=== PATIENT | male | born 1945 | race African-American/Black ===

== ENCOUNTER 2017-12-25 00:20 | Inpatient (IN) | payer MEDICARE, OTHER ==
[~2017-12-25] VITALS: Ht 172.7 cm; Wt 54.5 kg
[2017-12-25] VITALS (8 sets, daily range): BP systolic 100–145; BP diastolic 58–84; PULSE 80–96; RESP 16–18; TEMP 98–99.5; O2SAT 92–100
[~2017-12-25 00:20] MED LIST: Z.0.NO CURRENT MEDS
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
[2017-12-25] MEDS ORDERED: SODIUM CHLORIDE 0.9% FLUSH 10 ML FLUSH IVF PRN (00:45)
[2017-12-25] MEDS ORDERED: MORPHINE SULFATE 4 MG/ML INJ IV PUSH ONE ×2 (00:45→02:30)
[2017-12-25] MEDS ORDERED: ONDANSETRON HCL 4 MG/2 ML VIAL IM ONE (00:45)
[2017-12-25 01:01] LABS: AUTOMATED NEUTROPHIL # 1.9 TH/MM3 (1.8-7.7); BASOPHIL % 0.8 % (0.0-2.0); EOSINOPHIL # 0.1 TH/MM3 (0-0.4); EOSINOPHIL % 2.7 % (0.0-4.0); HEMATOCRIT 39.8 % (39.0-51.0); HEMOGLOBIN 13.8 GM/DL (13.0-17.0); LYMPH % 33.6 % (9.0-44.0); LYMPHOCYTE # 1.2 TH/MM3 (1.0-4.8); MEAN CORPUSCULAR HEMOGLOBIN 33.3 PG (27.0-34.0); MEAN CORPUSCULAR HGB CONC 34.7 % (32.0-36.0); MONO % 6.7 % (0.0-8.0); MONOCYTE # 0.2 TH/MM3 (0-0.9); NEUT % 56.2 % (16.0-70.0); PLATELET COUNT 252 TH/MM3 (150-450); RED BLOOD COUNT 4.15 MIL/MM3 (4.50-5.90); RED CELL DISTRIBUTION WIDTH 14.7 % (11.6-17.2); WHITE BLOOD COUNT 3.4 TH/MM3 (4.0-11.0)
[2017-12-25 01:20] LABS: PROTHROMBIN TIME - PATIENT 10.3 SEC (9.8-11.6)
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
[2017-12-25 01:25] LABS: ALKALINE PHOSPHATASE 73 U/L (45-117); TOTAL BILIRUBIN ADULT 1.1 MG/DL (0.2-1.0); TOTAL PROTEIN 7.5 GM/DL (6.4-8.2)
[2017-12-25 01:30] LABS: ALBUMIN 3.8 GM/DL (3.4-5.0); ALT (GPT) 27 U/L (12-78); AST (GOT) 42 U/L (15-37); BLOOD UREA NITROGEN 11 MG/DL (7-18); CALCIUM 8.8 MG/DL (8.5-10.1); CHLORIDE 105 MEQ/L (98-107); CREATININE 1.21 MG/DL (0.60-1.30); GLOMERULAR FILTRATION RATE 72 ML/MIN (>89); GLUCOSE,RANDOM 89 MG/DL (74-106); SODIUM (NA) 138 MEQ/L (136-145)
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
[2017-12-25] MEDS ORDERED: LORazepam 1 MG TAB PO PRN (02:00)
[2017-12-25] MEDS ORDERED: BISACODYL 10 MG SUPP RECTAL PRN (02:00)
[2017-12-25] MEDS ORDERED: LORazepam 2 MG TAB PO PRN (02:00)
[2017-12-25] MEDS ORDERED: SODIUM CHLORIDE 0.9% FLUSH 10 ML FLUSH IV FLUSH PRN (02:00)
[2017-12-25] MEDS ORDERED: NALOXONE HCL 0.4 MG/ML AMP IV PUSH PRN (02:00)
[2017-12-25] MEDS ORDERED: ONDANSETRON HCL 4 MG/2 ML VIAL IVP PRN (02:00)
[2017-12-25] MEDS ORDERED: FLUMAZENIL 0.5 MG/5 ML VIAL IV PUSH PRN (02:00)
[2017-12-25] MEDS ORDERED: LORazepam 2 MG/ML VIAL IV PUSH PRN ×4 (02:00)
[2017-12-25] MEDS ORDERED: ACETAMINOPHEN 325 MG TAB PO PRN (02:00)
[2017-12-25] MEDS: SODIUM CHLOR 0.9% 1000 ML INJ 1,000 ML IV SCH ×2 (02:00→16:18)
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
[2017-12-25 02:57] LABS: BILIRUBIN, URINE NEG (NEG); BLOOD, URINE NEG (NEG); GLUCOSE,URINE NEG (NEG); KETONE, URINE NEG (NEG); MUCUS URINE FEW /lpf (OCC); NITRITE,URINE NEG (NEG); PH, URINE 7.5 (5.0-8.5); URINE COLOR YELLOW (YELLW/STRAW); URINE LEUKOCYTE ESTERASE NEG (NEG)
[2017-12-25] MEDS ORDERED: CHLORHEXIDINE GLUCONATE 2 % 1 PACK (2 CLOTHS) TOPICAL PRN (05:00)
[2017-12-25] MEDS ORDERED: METOPROLOL TARTRATE 25 MG TAB PO PRN (05:00)
[2017-12-25] MEDS ORDERED: LACTATED RINGER'S 1000 ML IV PRN (05:00)
[2017-12-25] MEDS ORDERED: POVIDONE IODINE 5% (ANTISEPSIS KIT) 4 APPLICATIONS EACH NARE PRN (05:00)
[2017-12-25] MEDS ORDERED: SODIUM CHLORID 0.9% 500 ML IV PRN (05:00)
[2017-12-25] MEDS: MORPHINE SULFATE 4 MG/ML INJ IV PUSH PRN ×3 (05:41→18:34)
[2017-12-25] MEDS: THIAMINE HCL 100 MG TAB PO SCH (07:09)
[2017-12-25] MEDS: DOCUSATE SODIUM 50 MG/SENNA 8.6 MG TAB PO SCH ×2 (07:09→20:21)
[2017-12-25] MEDS: MULTIVITAMINS/MINERALS THERAPEUTIC TAB PO SCH (07:09)
[2017-12-25] MEDS: FOLIC ACID 1 MG TAB PO SCH (07:09)
[2017-12-25] MEDS: SODIUM CHLORIDE 0.9% FLUSH 10 ML FLUSH IV FLUSH SCH ×2 (07:09→20:21)
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
[2017-12-25] MEDS ORDERED: cloNIDine HCL 0.1 MG TAB PO PRN (09:45)
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
[2017-12-25] MEDS ORDERED: DEXAMETHASONE SOD PHOS 4 MG/ML VIAL IV ONE (12:00)
[2017-12-25] MEDS ORDERED: PHENYLEPH/NS 1000 MCG/10 ML SYR IV ONE (12:00)
[2017-12-25] MEDS ORDERED: PROPOFOL 200 MG/20 ML AMP IV ONE (12:00)
[2017-12-25] MEDS ORDERED: LACTATED RINGER'S 1000 ML INJ 1,000 ML IV ONE (12:00)
[2017-12-25] MEDS ORDERED: NEOSTIGMINE 5 MG/5 ML SYRINGE IV PUSH ONE (12:00)
[2017-12-25] MEDS ORDERED: GLYCOPYRROLATE 1 MG/5 ML SYRINGE IV PUSH ONE (12:00)
[2017-12-25] MEDS ORDERED: ONDANSETRON HCL 4 MG/2 ML VIAL IV ONE (12:00)
[2017-12-25] MEDS ORDERED: LIDOCAINE HCL 1% PF 5 ML SYRINGE OTHER ONE (12:00)
[2017-12-25] MEDS ORDERED: ROCURONIUM INJ 50 MG/5 ML SYRINGE IV PUSH ONE (12:00)
[2017-12-25] MEDS ORDERED: ceFAZolin INJ 1,000 MG VIAL ONE ×2 (12:28→12:59)
[2017-12-25] MEDS ORDERED: GENTAMICIN SULFATE 80 MG/2 ML VIAL ONE ×2 (12:28→12:29)
[2017-12-25] MEDS ORDERED: BUPIVACAINE/EPINEPHRINE 0.25% PF 10 ML VIAL ONE (12:28)
[2017-12-25] MEDS ORDERED: VANCOMYCIN HCL 1000 MG VIAL ONE ×2 (12:29→12:59)
[2017-12-25] MEDS ORDERED: SODIUM CHLOR 0.9% 250 ML INJ 250 ML ONE (12:29)
[2017-12-25] MEDS ORDERED: ACETAMINOPHEN 1000 MG/100 ML 0 ML IV ONE (12:45)
[2017-12-25] MEDS ORDERED: FAMOTIDINE 20 MG/2 ML VIAL ONE (12:45)
--- NOTE | 2017-12-25 13:49 | PD.OP ---
cc: Jovany Nielsen MD Operative Report Date of Surgery: Dec 25, 2017 Preoperative Diagnosis: Displaced left hip intertrochanteric fracture Postoperative Diagnosis: Procedure: Left hip reduction and intramedullary fixation Anesthesia: General Surgeon: Jovany Nielsen Pick Up And Delivery Driver(s): CONG Gorman PA-C The surgical procedure was assisted by my physician payroll administrative assistant. My P.A. presence was necessary throughout this case for the manipulation and positioning of the surgical extremity. My P.A. was assisting me throughout the duration of this procedure. The skill set of a physician payroll administrative assistant was medically necessary to complete this procedure. During the surgical case the surgical nurse practitioner was working at the back table and the physician payroll administrative assistant was directly assisting me. Operation and Findings: Implants used: [12]mm x [420]mm Synthes troch nail Plan of activity: Weight-bear as tolerated Patient was seen and evaluated preoperatively. The patient has significant hip pain from proximal femur fracture. The risk and benefits of surgery were discussed in depth with the patient to include bleeding, infection, nonunion, malunion, need for hip replacement, painful hardware, as well as medical competitions including blood clots, stroke, heart attack, and . Informed consent was obtained. Operative site was marked. Patient was brought to the operating room and placed on fracture table. IV sedation was administered by anesthesiologist. Timeout procedure was performed. Hip and leg were prepped with alcohol followed by DuraPrep and draped in the usual sterile fashion. IV antibiotics were given prior to incision. Procedure began with reduction of fracture. Traction was applied. The leg was manipulated to achieve reduction. Excellent reduction was achieved. Fluoroscopy was used to confirm reduction. A three inch incision was made proximal to the trochanter. Subcutaneous tissue was dissected bluntly. Guidepin was placed at the tip of the trochanter and advanced into the femoral canal. Fluoroscopy confirmed appropriate guidepin placement. A opening reamer was placed over the guidepin. A long ball tipped guide pin was now placed down the femoral canal into the center of the distal femur. The nail length was now measured. Fluoroscopy confirmed appropriate guidepin placement. Flexible reamers were now passed over the guidepin to ream the intramedullary canal. The nail was attached to the insertion handle. Nail was now placed over the guidepin into the femoral canal. Fluoroscopy confirmed appropriate nail placement. A second incision was made over the lateral thigh. Cannulas were placed through the insertion handle down to the femur. Guidepin was now placed through the femoral nail into the center of the femoral head. Fluoroscopy confirmed appropriate guidepin placement. Screw length was measured. Cannulated drill was placed over the guidepin. Appropriate length lag screw was now placed. Traction was released and compression was applied. The set screw was now tightened in dynamic mode. Next, using perfect big sandy technique two distal interlocking screws were placed. Screw holes were predrilled and screw lengths were measured. Final fluoroscopy revealed well aligned fracture with well-placed hardware. Incision was closed with 3-0 Vicryl and abhishek. Sterile dressings were applied. Patient was awakened and transferred to recovery room. Jovany Nielsen MD Dec 25, 2017 13:49
[2017-12-25] MEDS ORDERED: ERGOCALCIFEROL (VIT D2) 50,000 UNIT CAP PO ONE (14:00)
[2017-12-25] MEDS ORDERED: diphenhydrAMINE HCL 25 MG CAP PO PRN (14:00)
[2017-12-25] MEDS ORDERED: DO NOT ADM ANY ANTICOAGULANT DRUGS PRN (14:09)
[2017-12-25] MEDS ORDERED: MIDAZOLAM HCL 2 MG/2 ML VIAL ONE (14:13)
[2017-12-25] MEDS ORDERED: LORazepam 0.5 MG TAB PO ONE (15:00)
--- NOTE | 2017-12-25 15:25 | RADRPT ---
EXAM DATE/TIME: 12/25/2017 13:41 [facility] COMPARISON: FEMUR LEFT (AP & LAT/2VWS), December 25, 2017, 0:57. INDICATIONS : ORIF left hip fracture. MEDICAL HISTORY : Unobtainable. SURGICAL HISTORY : Unobtainable. ENCOUNTER: Subsequent ACUITY: 1 day PAIN SCORE: Non-responsive. LOCATION: Left femur CONCLUSION: Fluoroscopic images during placement of an intramedullary right fixating femoral fracture. Lew Morrissey MD on December 25, 2017 at 15:23 Board Certified Radiologist. This report was verified electronically.
[2017-12-25] MEDS ORDERED: LORazepam 2 MG/ML VIAL IV ONE (15:45)
--- NOTE | 2017-12-25 15:49 | EKG ---
Date Performed: 12/25/2017 Time Performed: 01:16:48 PTAGE: 72 years EKG: Sinus rhythm POSSIBLE RIGHT ATRIAL ENLARGEMENT LEFT ATRIAL ENLARGEMENT SEPTAL MYOCARDIAL INFARCTION ABNORMAL ECG NO PREVIOUS TRACING Now consider anteroseptal myocardial infarction - age indeterminate. DOCTOR: [place] Interpretating Date/Time 12/25/2017 15:47:33
[2017-12-25] MEDS: CALCIUM/VITAMIN D 250 MG/125 U TAB PO SCH (18:34)
[2017-12-26] MEDS: ACETAMINOPHEN/HYDROcodone 325 MG/7.5 MG TAB PO PRN ×4 (01:53→19:05)
[2017-12-26 04:02] VITALS: BP 94/53; PULSE 94; RESP 18; TEMP 99.6; O2SAT 96
[2017-12-26] MEDS: MORPHINE SULFATE 4 MG/ML INJ IV PUSH PRN (05:53)
--- NOTE | 2017-12-26 06:54 | PD.ORT.PN ---
Subjective Subjective Remarks POD 1 s/p IMN left hip doing well. reports pain controlled. Objective Vitals Vital Signs Date Time Temp Pulse Resp B/P (MAP) Pulse Ox O2 Delivery O2 Flow Rate FiO2 12/26/17 04:02 99.6 94 18 94/53 (67) 96 12/25/17 23:11 99.3 96 18 116/71 (86) 96 12/25/17 20:06 99 21 12/25/17 19:25 98.7 90 18 111/58 (75) 92 12/25/17 16:15 Nasal Cannula 2.00 12/25/17 16:00 99.3 95 16 100/67 (78) 100 12/25/17 15:45 98.4 86 16 106/64 (78) 95 Nasal Cannula 2 12/25/17 15:30 87 16 99/58 (72) 95 Nasal Cannula 2 12/25/17 15:15 88 15 98/60 (73) 94 Nasal Cannula 2 12/25/17 15:00 89 15 102/61 (75) 100 Nasal Cannula 3 12/25/17 14:45 98 15 100/65 (77) 99 Nasal Cannula 3 12/25/17 14:30 100 15 102/69 (80) 98 Nasal Cannula 3 12/25/17 14:15 102 15 109/70 (83) 98 Nasal Cannula 3 12/25/17 14:05 98.3 100 17 116/74 (88) 100 Nasal Cannula 4 12/25/17 08:00 99.5 83 16 109/63 (78) 99 I/O 12/25/17 12/25/17 12/25/17 12/26/17 12/26/17 12/26/17 07:00 15:00 23:00 07:00 15:00 23:00 Intake Total 1000 ml 480 ml Output Total 25 ml 550 ml Balance 975 ml -70 ml Intake Oral 480 ml Other 1000 ml Output Urine Total 550 ml Estimated Blood Loss 25 ml # Voids 0 # Bowel Movements 0 Result Diagram: 12/25/174112/25/1741 Imaging Last 24 hours Impressions Hip and Pelvis X-Ray 12/25/1730 Signed Impressions: Service Date/Time: Monday, December 25, 2017 00:54 - CONCLUSION: Comminuted left intertrochanteric hip fracture with medial angulation deformity. Gideon Chowdary MD Femur X-Ray 12/25/1730 Signed Impressions: Service Date/Time: Monday, December 25, 2017 00:57 - CONCLUSION: Acute intertrochanteric fracture. Gideon Chowdary MD Chest X-Ray 12/25/1730 Signed Impressions: Service Date/Time: Monday, December 25, 2017 00:58 - CONCLUSION: No acute abnormality demonstrated. Gideon Chowdary MD Objective Remarks LLE: dressings clean and dry. intact. nvi Assessment & Plan Assessment and Plan 1) Left intertrochanteric femur fracture s/p IMN - POD 1 -WBAT -daily dressing changes POD 2 -CM for rehab vs home with HHC -medical mgmt -f/u with Antonia or PA in 2 weeks Colt Marquis PA/[employer] PA Dec 26, 2017 06:54
[2017-12-26 08:00] VITALS: BP 95/54; PULSE 80; RESP 18; TEMP 99.1; O2SAT 99
[2017-12-26 08:51] LABS: AUTOMATED NEUTROPHIL # 4.3 TH/MM3 (1.8-7.7); BASOPHIL % 0.4 % (0.0-2.0); EOSINOPHIL % 0.1 % (0.0-4.0); HEMATOCRIT 23.2 % (39.0-51.0); LYMPH % 19.1 % (9.0-44.0); LYMPHOCYTE # 1.2 TH/MM3 (1.0-4.8); MEAN CELL VOLUME 96.9 FL (80.0-100.0); MEAN CORPUSCULAR HEMOGLOBIN 33.4 PG (27.0-34.0); MEAN CORPUSCULAR HGB CONC 34.4 % (32.0-36.0); MEAN PLATELET VOLUME 7.8 FL (7.0-11.0); MONO % 10.5 % (0.0-8.0); MONOCYTE # 0.7 TH/MM3 (0-0.9); NEUT % 69.9 % (16.0-70.0); PLATELET COUNT 139 TH/MM3 (150-450); RED BLOOD COUNT 2.39 MIL/MM3 (4.50-5.90); RED CELL DISTRIBUTION WIDTH 14.2 % (11.6-17.2); WHITE BLOOD COUNT 6.2 TH/MM3 (4.0-11.0)
[2017-12-26] MEDS: CALCIUM/VITAMIN D 250 MG/125 U TAB PO SCH ×2 (08:54→18:00)
[2017-12-26] MEDS: FOLIC ACID 1 MG TAB PO SCH (08:54)
[2017-12-26] MEDS: DOCUSATE SODIUM 50 MG/SENNA 8.6 MG TAB PO SCH ×2 (08:54→19:38)
[2017-12-26] MEDS: CHOLECALCIFEROL (VIT D3) 5000 UNIT CAP PO SCH (08:54)
[2017-12-26] MEDS: THIAMINE HCL 100 MG TAB PO SCH (08:54)
[2017-12-26] MEDS: MULTIVITAMINS/MINERALS THERAPEUTIC TAB PO SCH (08:54)
[2017-12-26 09:05] LABS: ALBUMIN 2.7 GM/DL (3.4-5.0); AST (GOT) 16 U/L (15-37); BICARBONATE 26.6 MEQ/L (21.0-32.0); BLOOD UREA NITROGEN 12 MG/DL (7-18); CHLORIDE 102 MEQ/L (98-107); CREATININE 1.13 MG/DL (0.60-1.30); GLOMERULAR FILTRATION RATE 78 ML/MIN (>89); GLUCOSE,RANDOM 114 MG/DL (74-106); MAGNESIUM 1.9 MG/DL (1.5-2.5); SODIUM (NA) 135 MEQ/L (136-145)
[2017-12-26 09:26] LABS: ALKALINE PHOSPHATASE 38 U/L (45-117); ALT (GPT) 16 U/L (12-78); FREE T4 1.15 NG/DL (0.76-1.46); TOTAL BILIRUBIN ADULT 2.3 MG/DL (0.2-1.0); TOTAL PROTEIN 5.3 GM/DL (6.4-8.2)
[2017-12-26] MEDS ORDERED: TAMSULOSIN HCL 0.4 MG CAP PO ONE (09:45)
[2017-12-26 12:00] VITALS: BP 89/54; PULSE 78; RESP 18; TEMP 98; O2SAT 93
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
[2017-12-26] MEDS: ENOXAPARIN SODIUM 30 MG/0.3 ML SYRINGE SQ SCH (13:21)
[2017-12-26 16:00] VITALS: BP 107/66; PULSE 86; RESP 18; TEMP 98.5; O2SAT 97
[2017-12-26 17:55] VITALS: O2SAT 97
[2017-12-26 19:20] LABS: HEMOGLOBIN A1C 5.5 % (4.3-6.0)
[2017-12-26 20:00] VITALS: BP 135/48; PULSE 80; RESP 18; TEMP 95.7; O2SAT 98
[2017-12-26] MEDS: SODIUM CHLOR 0.9% 1000 ML INJ 1,000 ML IV SCH (20:54)
[2017-12-26] MEDS: SODIUM CHLORIDE 0.9% FLUSH 10 ML FLUSH IV FLUSH SCH (21:00)
[2017-12-27] VITALS (8 sets, daily range): BP systolic 92–109; BP diastolic 51–75; PULSE 84–93; RESP 16–18; TEMP 98.3–101; O2SAT 94–98
[2017-12-27] MEDS: ACETAMINOPHEN/HYDROcodone 325 MG/7.5 MG TAB PO PRN ×2 (05:09→08:45)
--- NOTE | 2017-12-27 06:40 | PD.ORT.PN ---
Subjective Subjective Remarks POD 2 s/p IMN left hip doing well. reports pain controlled. Objective Vitals Vital Signs Date Time Temp Pulse Resp B/P (MAP) Pulse Ox O2 Delivery O2 Flow Rate FiO2 12/27/17 05:06 99.6 91 109/56 (73) 12/27/17 04:00 101.0 91 16 92/54 (67) 96 12/27/17 00:00 99.8 90 18 97/58 (71) 98 12/26/17 20:00 95.7 80 18 135/48 (77) 98 12/26/17 19:40 Room Air 12/26/17 17:55 97 21 12/26/17 16:00 98.5 86 18 107/66 (80) 97 12/26/17 13:52 21 12/26/17 12:00 98.0 78 18 89/54 (66) 93 12/26/17 08:00 99.1 80 18 95/54 (68) 99 I/O 12/26/17 12/26/17 12/26/17 12/27/17 12/27/17 12/27/17 07:00 15:00 23:00 07:00 15:00 23:00 Intake Total 480 ml 600 ml 480 ml Output Total 550 ml 2100 ml 750 ml Balance -70 ml -1500 ml -270 ml Intake Oral 480 ml 600 ml 480 ml Output Urine Total 550 ml 2100 ml 750 ml # Voids 2 # Bowel Movements 0 0 Result Diagram: 12/26/17 0712 12/26/17 0712 Imaging Last 24 hours Impressions Hip and Pelvis X-Ray 12/25/1730 Signed Impressions: Service Date/Time: Monday, December 25, 2017 00:54 - CONCLUSION: Comminuted left intertrochanteric hip fracture with medial angulation deformity. Gideon Chowdary MD Femur X-Ray 12/25/1730 Signed Impressions: Service Date/Time: Monday, December 25, 2017 00:57 - CONCLUSION: Acute intertrochanteric fracture. Gideon Chowdary MD Chest X-Ray 12/25/1730 Signed Impressions: Service Date/Time: Monday, December 25, 2017 00:58 - CONCLUSION: No acute abnormality demonstrated. Gideon Chowdary MD Objective Remarks LLE: dressings clean and dry. intact. nvi Assessment & Plan Assessment and Plan 1) Left intertrochanteric femur fracture s/p IMN - POD 2 -WBAT -daily dressing changes POD 2 -CM for rehab vs home with C -medical mgmt -f/u with Antonia or PA in 2 weeks Colt Marquis PA/Research Technologist PA Dec 27, 2017 06:40
[2017-12-27] MEDS: MULTIVITAMINS/MINERALS THERAPEUTIC TAB PO SCH (08:45)
[2017-12-27] MEDS: CALCIUM/VITAMIN D 250 MG/125 U TAB PO SCH ×3 (08:46→15:37)
[2017-12-27] MEDS: CHOLECALCIFEROL (VIT D3) 5000 UNIT CAP PO SCH (08:46)
[2017-12-27] MEDS: THIAMINE HCL 100 MG TAB PO SCH (08:46)
[2017-12-27] MEDS: SENNOSIDES 8.6 MG TAB PO PRN (08:46)
[2017-12-27] MEDS: DOCUSATE SODIUM 50 MG/SENNA 8.6 MG TAB PO SCH ×2 (08:46→19:40)
[2017-12-27] MEDS: TAMSULOSIN HCL 0.4 MG CAP PO SCH (08:46)
[2017-12-27] MEDS: FOLIC ACID 1 MG TAB PO SCH (08:46)
[2017-12-27] MEDS: LACTULOSE SYRUP 20 GM/30 ML CUP PO PRN (08:47)
[2017-12-27] MEDS: SODIUM CHLORIDE 0.9% FLUSH 10 ML FLUSH IV FLUSH SCH ×2 (08:49→19:40)
--- NOTE | 2017-12-27 09:50 | HHI.PR ---
Subjective Remarks Follow up left hip fracture. POD #2. Patient complaining of pain 04/19 states the pain medication is not working well. Denies any chest pain or SOB. States he is working with PT well. Objective Vitals Vital Signs Date Time Temp Pulse Resp B/P (MAP) Pulse Ox O2 Delivery O2 Flow Rate FiO2 12/27/17 09:10 Room Air 12/27/17 08:00 98.6 84 17 95/51 (66) 95 12/27/17 05:06 99.6 91 109/56 (73) 12/27/17 04:00 101.0 91 16 92/54 (67) 96 12/27/17 00:00 99.8 90 18 97/58 (71) 98 12/26/17 20:00 95.7 80 18 135/48 (77) 98 12/26/17 19:40 Room Air 12/26/17 17:55 97 21 12/26/17 16:00 98.5 86 18 107/66 (80) 97 12/26/17 13:52 21 12/26/17 12:00 98.0 78 18 89/54 (66) 93 I/O 12/26/17 12/26/17 12/26/17 12/27/17 12/27/17 12/27/17 07:00 15:00 23:00 07:00 15:00 23:00 Intake Total 480 ml 600 ml 480 ml Output Total 550 ml 2100 ml 750 ml Balance -70 ml -1500 ml -270 ml Intake Oral 480 ml 600 ml 480 ml Output Urine Total 550 ml 2100 ml 750 ml # Voids 2 # Bowel Movements 0 0 Result Diagram: 12/26/1771112/26/17711 Imaging Last Impressions Hip and Pelvis X-Ray 12/25/1730 Signed Impressions: Service Date/Time: Monday, December 25, 2017 00:54 - CONCLUSION: Comminuted left intertrochanteric hip fracture with medial angulation deformity. Gideon Chowdary MD Femur X-Ray 12/25/1730 Signed Impressions: Service Date/Time: Monday, December 25, 2017 00:57 - CONCLUSION: Acute intertrochanteric fracture. Gideon Chowdary MD Chest X-Ray 12/25/1730 Signed Impressions: Service Date/Time: Monday, December 25, 2017 00:58 - CONCLUSION: No acute abnormality demonstrated. Gideon Chowdary MD Objective Remarks GENERAL: Patient in NAD, complaining of some pain SKIN: Warm and dry. Dressings dry and intact HEAD: Atraumatic. Normocephalic. EYES: Pupils equal and round. No scleral icterus. No injection or drainage. ENT: No nasal bleeding or discharge. Mucous membranes pink and moist. NECK: Trachea midline. No JVD. CARDIOVASCULAR: Regular rate and rhythm. RESPIRATORY: No accessory muscle use. Clear to auscultation. Breath sounds equal bilaterally. GASTROINTESTINAL: Abdomen soft, non-tender, nondistended. Hepatic and splenic margins not palpable. MUSCULOSKELETAL: Extremities without clubbing, cyanosis, or edema. No obvious deformities. NEUROLOGICAL: Awake and alert. No obvious cranial nerve deficits. Motor grossly within normal limits. Normal speech. PSYCHIATRIC: Appropriate mood and affect; insight and judgment normal. Procedures Date of Surgery: Dec 25, 2017 Preoperative Diagnosis: Displaced left hip intertrochanteric fracture Postoperative Diagnosis: Procedure: Left hip reduction and intramedullary fixation Anesthesia: General Surgeon: Jovany Knight Pig Lead Melter Helper(s): CONG Gorman PA-C The surgical procedure was assisted by my physician machine operator assistant. My P.A. presence was necessary throughout this case for the manipulation and positioning of the surgical extremity. My P.A. was assisting me throughout the duration of this procedure. The skill set of a physician machine operator assistant was medically necessary to complete this procedure. During the surgical case the surgical technology instructor was working at the back table and the physician machine operator assistant was directly assisting me. Operation and Findings: Implants used: [12]mm x [420]mm Synthes troch nail Plan of activity: Weight-bear as tolerated Patient was seen and evaluated preoperatively. The patient has significant hip pain from proximal femur fracture. The risk and benefits of surgery were discussed in depth with the patient to include bleeding, infection, nonunion, malunion, need for hip replacement, painful hardware, as well as medical competitions including blood clots, stroke, heart attack, and . Informed consent was obtained. Operative site was marked. Patient was brought to the operating room and placed on fracture table. IV sedation was administered by anesthesiologist. Timeout procedure was performed. Hip and leg were prepped with alcohol followed by DuraPrep and draped in the usual sterile fashion. IV antibiotics were given prior to incision. Procedure began with reduction of fracture. Traction was applied. The leg was manipulated to achieve reduction. Excellent reduction was achieved. Fluoroscopy was used to confirm reduction. A three inch incision was made proximal to the trochanter. Subcutaneous tissue was dissected bluntly. Guidepin was placed at the tip of the trochanter and advanced into the femoral canal. Fluoroscopy confirmed appropriate guidepin placement. A opening reamer was placed over the guidepin. A long ball tipped guide pin was now placed down the femoral canal into the center of the distal femur. The nail length was now measured. Fluoroscopy confirmed appropriate guidepin placement. Flexible reamers were now passed over the guidepin to ream the intramedullary canal. The nail was attached to the insertion handle. Nail was now placed over the guidepin into the femoral canal. Fluoroscopy confirmed appropriate nail placement. A second incision was made over the lateral thigh. Cannulas were placed through the insertion handle down to the femur. Guidepin was now placed through the femoral nail into the center of the femoral head. Fluoroscopy confirmed appropriate guidepin placement. Screw length was measured. Cannulated drill was placed over the guidepin. Appropriate length lag screw was now placed. Traction was released and compression was applied. The set screw was now tightened in dynamic mode. Next, using perfect [place] technique two distal interlocking screws were placed. Screw holes were predrilled and screw lengths were measured. Final fluoroscopy revealed well aligned fracture with well-placed hardware. Incision was closed with 3-0 Vicryl and abhishek. Sterile dressings were applied. Patient was awakened and transferred to recovery room. Jovany Knight MD Dec 25, 2017 13:49 Urinary Catheter: Yes Assessment to: Remove Vascular Central Line Catheter: No A/P Problem List: (1) Closed intertrochanteric fracture of left hip ICD Code: S72.142A - Displaced intertrochanteric fracture of left femur, initial encounter for closed fracture Status: Acute Assessment and Plan 1. Left hip fracture Pelvic x-ray significant for comminuted left intertrochanteric hip fracture with medial angulation deformity -Change PO medication to Percocet 7.5mg @4Hr, Morphine for breakthrough pain -Orthopedic surgery consulted, surgery was completed on 12/25 -PT Alcohol abuse -Thiamine/folate/multivitamins -[facility] protocol -Monitor for signs of withdrawal Cocaine abuse, Chronic -Cessation counseling provided Nasal/throat irritation, Resolved -Does not appear to be infectious in origin -Cont to monitor Anemia, hgb 8.0 -Awaiting am labs BPH -Flomax started 12/26 -Remove Hayes, straight cath as needed, if patient continues to retain will reinsert Hayes DVT prophylaxis: Lovenox Discharge Planning Discharge to SNF when set up by case management Ortho suggests WBAT, Dressing changes, follow up [facility] in 2 weeks Problem Qualifiers (1) Closed intertrochanteric fracture of left hip: Qualified Codes: S72.142A - Displaced intertrochanteric fracture of left femur , initial encounter for closed fracture Tomasa Escobedo Dec 27, 2017 09:50
[2017-12-27] MEDS: SODIUM CHLOR 0.9% 1000 ML INJ 1,000 ML IV SCH (09:52)
[2017-12-27 10:39] LABS: BICARBONATE 29.7 MEQ/L (21.0-32.0); CALCIUM 8.5 MG/DL (8.5-10.1); CREATININE 0.93 MG/DL (0.60-1.30)
[2017-12-27] MEDS: oxyCODONE/ACETAMINOPHEN 7.5 MG/325 MG TAB PO PRN ×3 (11:39→22:40)
[2017-12-27] MEDS: ENOXAPARIN SODIUM 30 MG/0.3 ML SYRINGE SQ SCH (11:40)
[2017-12-28] VITALS (11 sets, daily range): BP systolic 87–110; BP diastolic 52–59; PULSE 78–94; RESP 16–18; TEMP 98.5–99.6; O2SAT 91–97
[2017-12-28] MEDS: SODIUM CHLOR 0.9% 1000 ML INJ 1,000 ML IV SCH ×2 (01:30→09:24)
[2017-12-28] MEDS: oxyCODONE/ACETAMINOPHEN 7.5 MG/325 MG TAB PO PRN ×5 (03:15→21:06)
[2017-12-28 06:06] LABS: AUTOMATED NEUTROPHIL # 3.9 TH/MM3 (1.8-7.7); BASOPHIL % 0.4 % (0.0-2.0); EOSINOPHIL # 0.1 TH/MM3 (0-0.4); EOSINOPHIL % 2.6 % (0.0-4.0); LYMPH % 19.5 % (9.0-44.0); LYMPHOCYTE # 1.1 TH/MM3 (1.0-4.8); MEAN CELL VOLUME 96.3 FL (80.0-100.0); MEAN CORPUSCULAR HEMOGLOBIN 33.2 PG (27.0-34.0); MEAN CORPUSCULAR HGB CONC 34.4 % (32.0-36.0); MEAN PLATELET VOLUME 7.8 FL (7.0-11.0); MONO % 7.3 % (0.0-8.0); MONOCYTE # 0.4 TH/MM3 (0-0.9); NEUT % 70.2 % (16.0-70.0); PLATELET COUNT 139 TH/MM3 (150-450); RED BLOOD COUNT 1.91 MIL/MM3 (4.50-5.90); RED CELL DISTRIBUTION WIDTH 13.7 % (11.6-17.2); WHITE BLOOD COUNT 5.6 TH/MM3 (4.0-11.0)
[2017-12-28 06:22] LABS: HEMATOCRIT 18.4 % (39.0-51.0); HEMOGLOBIN 6.3 GM/DL (13.0-17.0)
--- NOTE | 2017-12-28 06:50 | PD.ORT.PN ---
Subjective Subjective Remarks Comfortably with no new complaints Objective Vitals Vital Signs Date Time Temp Pulse Resp B/P (MAP) Pulse Ox O2 Delivery O2 Flow Rate FiO2 12/28/17 00:00 99.3 85 17 101/55 (70) 94 12/27/17 22:39 89 18 106/52 (70) 95 12/27/17 22:07 21 12/27/17 20:00 98.7 93 18 97/53 (68) 94 12/27/17 15:14 98.3 93 16 108/75 (86) 94 12/27/17 11:35 98.9 87 18 94/51 (65) 95 12/27/17 09:10 Room Air 12/27/17 08:00 98.6 84 17 95/51 (66) 95 I/O 12/27/17 12/27/17 12/27/17 12/28/17 12/28/17 12/28/17 07:00 15:00 23:00 07:00 15:00 23:00 Intake Total 480 ml 480 ml Output Total 750 ml 800 ml Balance -270 ml -320 ml Intake Oral 480 ml 480 ml Output Urine Total 750 ml 800 ml Bladder Scan Volume Amount 34 ml # Voids 2 # Bowel Movements 0 Result Diagram: 12/28/17 0500 12/27/17 0945 Imaging Last 24 hours Impressions Hip and Pelvis X-Ray 12/25/1730 Signed Impressions: Service Date/Time: Monday, December 25, 2017 00:54 - CONCLUSION: Comminuted left intertrochanteric hip fracture with medial angulation deformity. Gideon Chowdary MD Femur X-Ray 12/25/1730 Signed Impressions: Service Date/Time: Monday, December 25, 2017 00:57 - CONCLUSION: Acute intertrochanteric fracture. Gideon Chowdary MD Chest X-Ray 12/25/1730 Signed Impressions: Service Date/Time: Monday, December 25, 2017 00:58 - CONCLUSION: No acute abnormality demonstrated. Gideon Chowdary MD Objective Remarks LLE: dressings clean and dry. intact. nvi Assessment & Plan Assessment and Plan 1) Left intertrochanteric femur fracture s/p IMN - POD 3 -WBAT -daily dressing changes -CM for rehab vs home with [facility] -medical mgmt Orthopedically cleared for discharge -f/u with [facility] or [facility] in 2 weeks Ever Mathew Jr. Dec 28, 2017 06:50
[2017-12-28] MEDS ORDERED: CALCTAB19 PO (06:52)
[2017-12-28] MEDS ORDERED: XARE10TA PO (06:52)
[2017-12-28] MEDS ORDERED: ENDO7.5T10 PO (06:52)
[2017-12-28] MEDS ORDERED: VITA500012 PO (06:52)
[2017-12-28] MEDS ORDERED: WALKER WHEELS/F1 MIS (06:53)
[2017-12-28] MEDS: DOCUSATE SODIUM 50 MG/SENNA 8.6 MG TAB PO SCH ×2 (08:07→20:57)
[2017-12-28] MEDS: THIAMINE HCL 100 MG TAB PO SCH (08:07)
[2017-12-28] MEDS: SENNOSIDES 8.6 MG TAB PO PRN (08:07)
[2017-12-28] MEDS: CHOLECALCIFEROL (VIT D3) 5000 UNIT CAP PO SCH (08:07)
[2017-12-28] MEDS: TAMSULOSIN HCL 0.4 MG CAP PO SCH (08:07)
[2017-12-28] MEDS: CALCIUM/VITAMIN D 250 MG/125 U TAB PO SCH ×3 (08:07→16:53)
[2017-12-28] MEDS: MULTIVITAMINS/MINERALS THERAPEUTIC TAB PO SCH (08:07)
[2017-12-28] MEDS: FOLIC ACID 1 MG TAB PO SCH (08:07)
[2017-12-28] MEDS: MAGNESIUM HYDROXIDE SUSP 30 ML CUP PO PRN (08:08)
[2017-12-28] MEDS: LACTULOSE SYRUP 20 GM/30 ML CUP PO PRN (08:08)
[2017-12-28] MEDS: SODIUM CHLORIDE 0.9% FLUSH 10 ML FLUSH IV FLUSH SCH ×2 (08:08→20:57)
[2017-12-28 09:44] LABS: HEMATOCRIT 19.2 % (39.0-51.0); HEMOGLOBIN 6.6 GM/DL (13.0-17.0)
--- NOTE | 2017-12-28 09:49 | HHI.PR ---
Subjective Remarks Follow up left hip fracture. POD #3. Patient denies pain. He states he is congested and a little short of breath. Denies any active bleeding, no blood in stool or urine. Objective Vitals Vital Signs Date Time Temp Pulse Resp B/P (MAP) Pulse Ox O2 Delivery O2 Flow Rate FiO2 12/28/17 08:24 98.9 94 17 110/59 (76) 97 12/28/17 00:00 99.3 85 17 101/55 (70) 94 12/27/17 22:39 89 18 106/52 (70) 95 12/27/17 22:07 21 12/27/17 20:00 98.7 93 18 97/53 (68) 94 12/27/17 15:14 98.3 93 16 108/75 (86) 94 12/27/17 11:35 98.9 87 18 94/51 (65) 95 I/O 12/27/17 12/27/17 12/27/17 12/28/17 12/28/17 12/28/17 07:00 15:00 23:00 07:00 15:00 23:00 Intake Total 480 ml 480 ml 480 ml Output Total 750 ml 800 ml 1550 ml 450 ml Balance -270 ml -320 ml -1070 ml -450 ml Intake Oral 480 ml 480 ml 480 ml Output Urine Total 750 ml 800 ml 1550 ml 450 ml Bladder Scan Volume Amount 34 ml # Voids 2 # Bowel Movements 0 0 Result Diagram: 12/28/17 0840 12/27/17 0945 Objective Remarks GENERAL: Patient in NAD, complaining of some pain SKIN: Warm and dry. Dressings dry and intact HEAD: Atraumatic. Normocephalic. EYES: Pupils equal and round. No scleral icterus. No injection or drainage. ENT: No nasal bleeding or discharge. Mucous membranes pink and moist. NECK: Trachea midline. No JVD. CARDIOVASCULAR: Regular rate and rhythm. RESPIRATORY: No accessory muscle use. Clear to auscultation. Breath sounds equal bilaterally. GASTROINTESTINAL: Abdomen soft, non-tender, nondistended. Hepatic and splenic margins not palpable. MUSCULOSKELETAL: Extremities without clubbing, cyanosis, or edema. No obvious deformities. NEUROLOGICAL: Awake and alert. No obvious cranial nerve deficits. Motor grossly within normal limits. Normal speech. PSYCHIATRIC: Appropriate mood and affect; insight and judgment normal. Procedures Date of Surgery: Dec 25, 2017 Preoperative Diagnosis: Displaced left hip intertrochanteric fracture Postoperative Diagnosis: Procedure: Left hip reduction and intramedullary fixation Anesthesia: General Surgeon: Jovany Knight Emergency Preparedness Manager(s): CONG Gorman PA-C The surgical procedure was assisted by my physician assistant facility manager. My P.A. presence was necessary throughout this case for the manipulation and positioning of the surgical extremity. My P.A. was assisting me throughout the duration of this procedure. The skill set of a physician assistant facility manager was medically necessary to complete this procedure. During the surgical case the technology lab teacher was working at the back table and the physician assistant facility manager was directly assisting me. Operation and Findings: Implants used: [12]mm x [420]mm Synthes troch nail Plan of activity: Weight-bear as tolerated Patient was seen and evaluated preoperatively. The patient has significant hip pain from proximal femur fracture. The risk and benefits of surgery were discussed in depth with the patient to include bleeding, infection, nonunion, malunion, need for hip replacement, painful hardware, as well as medical competitions including blood clots, stroke, heart attack, and . Informed consent was obtained. Operative site was marked. Patient was brought to the operating room and placed on fracture table. IV sedation was administered by anesthesiologist. Timeout procedure was performed. Hip and leg were prepped with alcohol followed by DuraPrep and draped in the usual sterile fashion. IV antibiotics were given prior to incision. Procedure began with reduction of fracture. Traction was applied. The leg was manipulated to achieve reduction. Excellent reduction was achieved. Fluoroscopy was used to confirm reduction. A three inch incision was made proximal to the trochanter. Subcutaneous tissue was dissected bluntly. Guidepin was placed at the tip of the trochanter and advanced into the femoral canal. Fluoroscopy confirmed appropriate guidepin placement. A opening reamer was placed over the guidepin. A long ball tipped guide pin was now placed down the femoral canal into the center of the distal femur. The nail length was now measured. Fluoroscopy confirmed appropriate guidepin placement. Flexible reamers were now passed over the guidepin to ream the intramedullary canal. The nail was attached to the insertion handle. Nail was now placed over the guidepin into the femoral canal. Fluoroscopy confirmed appropriate nail placement. A second incision was made over the lateral thigh. Cannulas were placed through the insertion handle down to the femur. Guidepin was now placed through the femoral nail into the center of the femoral head. Fluoroscopy confirmed appropriate guidepin placement. Screw length was measured. Cannulated drill was placed over the guidepin. Appropriate length lag screw was now placed. Traction was released and compression was applied. The set screw was now tightened in dynamic mode. Next, using perfect [place] technique two distal interlocking screws were placed. Screw holes were predrilled and screw lengths were measured. Final fluoroscopy revealed well aligned fracture with well-placed hardware. Incision was closed with 3-0 Vicryl and abhishek. Sterile dressings were applied. Patient was awakened and transferred to recovery room. Jovany Knight MD Dec 25, 2017 13:49 Medications and IVs Current Medications Medications (Trade) Dose Ordered Sig/Mila Route Start Time Stop Time Status Last Admin (Morphine Inj) 4 mg Q3H PRN IV PUSH 12/25/17 02:00 12/26/17 05:53 (Folate) 1 mg DAILY PO 12/25/17 09:00 12/30/17 08:59 12/28/17 08:07 (Vitamin B1) 100 mg DAILY PO 12/25/17 09:00 12/28/17 08:07 (Theragran M Tab) 1 tab DAILY PO 12/25/17 09:00 12/30/17 08:59 12/28/17 08:07 (Romazicon Inj) 0.2 mg Q1M PRN IV PUSH 12/25/17 02:00 (Ativan) 1 mg Q4H PRN PO 12/25/17 02:00 (Ativan Inj) 1 mg Q4H PRN IV PUSH 12/25/17 02:00 (Ativan) 2 mg Q2H PRN PO 12/25/17 02:00 (Ativan Inj) 2 mg Q2H PRN IV PUSH 12/25/17 02:00 (Ativan Inj) 2 mg Q1H PRN IV PUSH 12/25/17 02:00 (Ativan Inj) 2 mg Q15M PRN IV PUSH 12/25/17 02:00 Sodium Chloride 1,000 ml @ 70 mls/hr [id number] IV 12/25/17 02:00 (NS Flush) 2 ml UNSCH PRN IV FLUSH 12/25/17 02:00 (NS Flush) 2 ml BID IV FLUSH 12/25/17 09:00 12/28/17 08:08 (Tylenol) 650 mg Q4H PRN PO 12/25/17 02:00 (Zofran Inj) 4 mg Q6H PRN IVP 12/25/17 02:00 12/26/17 18:30 (Narcan Inj) 0.4 mg UNSCH PRN IV PUSH 12/25/17 02:00 (Marcia-Colace) 1 tab BID PO 12/25/17 09:00 12/28/17 08:07 (Milk Of Magnesia Liq) 30 ml Q12H PRN PO 12/25/17 02:00 12/28/17 08:08 (Senokot) 17.2 mg Q12H PRN PO 12/25/17 02:00 12/28/17 08:07 (Dulcolax Supp) 10 mg DAILY PRN RECTAL 12/25/17 02:00 (Lactulose Liq) 30 ml DAILY PRN PO 12/25/17 02:00 12/28/17 08:08 (Catapres) 0.1 mg Q4H PRN PO 12/25/17 09:45 (Lovenox Inj) 30 mg Q24H SQ 12/26/17 13:00 12/27/17 11:40 (Oscal-D 250-125) 250 mg TID PO 12/25/17 18:00 12/28/17 08:07 (Benadryl) 25 mg Q6H PRN PO 12/25/17 14:00 (Vitamin D3) 5,000 units DAILY PO 12/26/17 09:00 12/28/17 08:07 (Flomax) 0.4 mg DAILY PO 12/27/17 09:00 12/28/17 08:07 (Percocet 7.5-325 Mg) 1 tab Q4H PRN PO 12/27/17 10:00 12/28/17 08:07 Sodium Chloride 250 ml @ 15 mls/hr ONCE ONCE IV 12/28/17 10:30 12/29/17 03:09 Urinary Catheter: No Vascular Central Line Catheter: No A/P Problem List: (1) Closed intertrochanteric fracture of left hip ICD Code: S72.142A - Displaced intertrochanteric fracture of left femur, initial encounter for closed fracture Status: Acute Assessment and Plan Left hip fracture Pelvic x-ray significant for comminuted left intertrochanteric hip fracture with medial angulation deformity -Cont PO medication to Percocet 7.5mg @4Hr, Morphine for breakthrough pain -Orthopedic surgery following, surgery was completed on 12/25 -PT Alcohol abuse -Thiamine/folate/multivitamins -[facility] protocol -Monitor for signs of withdrawal Cocaine abuse, Chronic -Cessation counseling provided Nasal/throat irritation, Resolved -Does not appear to be infectious in origin -Cont to monitor -[place] spray ordered prn Anemia, hgb 8.0-->6.6, no signs of active bleeding, likely causing patients sob -Transfuse 2 units PRBCs with IV lasix between units -Labs in AM -Occult stool ordered BPH -Flomax started 12/26 -Remove Hayes, straight cath as needed, if patient continues to retain will reinsert Hayes Constipation, likely due to pain medication -Marcia Colace BID -Cont bowel regimen DVT prophylaxis: Lovenox Discharge Planning Discharge to SNF when set up by case management Ortho suggests WBAT, Dressing changes, follow up [facility] in 2 weeks Problem Qualifiers (1) Closed intertrochanteric fracture of left hip: Qualified Codes: S72.142A - Displaced intertrochanteric fracture of left femur , initial encounter for closed fracture Tomasa Escobedo Dec 28, 2017 09:49
[2017-12-28] MEDS ORDERED: SODIUM CHLOR 0.9% 250 ML INJ 250 ML IV ONE (10:30)
[2017-12-28] MEDS ORDERED: FUROSEMIDE 20 MG/2 ML VIAL IV PUSH ONE ×2 (10:30→19:45)
[2017-12-28] MEDS: ENOXAPARIN SODIUM 30 MG/0.3 ML SYRINGE SQ SCH (12:50)
[2017-12-29] MEDS: oxyCODONE/ACETAMINOPHEN 7.5 MG/325 MG TAB PO PRN ×6 (01:22→21:48)
[2017-12-29 02:45] VITALS: BP 96/55; PULSE 76; RESP 20; TEMP 98.5; O2SAT 95
[2017-12-29] MEDS: SODIUM CHLOR 0.9% 1000 ML INJ 1,000 ML IV SCH ×2 (06:06→20:24)
[2017-12-29 07:40] LABS: AUTOMATED NEUTROPHIL # 4.3 TH/MM3 (1.8-7.7); BASOPHIL % 0.4 % (0.0-2.0); EOSINOPHIL # 0.2 TH/MM3 (0-0.4); EOSINOPHIL % 2.9 % (0.0-4.0); HEMATOCRIT 29.2 % (39.0-51.0); HEMOGLOBIN 10.1 GM/DL (13.0-17.0); LYMPH % 21.3 % (9.0-44.0); LYMPHOCYTE # 1.4 TH/MM3 (1.0-4.8); MEAN CELL VOLUME 92.4 FL (80.0-100.0); MEAN CORPUSCULAR HEMOGLOBIN 31.9 PG (27.0-34.0); MEAN CORPUSCULAR HGB CONC 34.5 % (32.0-36.0); MEAN PLATELET VOLUME 7.9 FL (7.0-11.0); MONOCYTE # 0.4 TH/MM3 (0-0.9); NEUT % 68.4 % (16.0-70.0); PLATELET COUNT 206 TH/MM3 (150-450); RED BLOOD COUNT 3.16 MIL/MM3 (4.50-5.90); RED CELL DISTRIBUTION WIDTH 16.4 % (11.6-17.2); WHITE BLOOD COUNT 6.3 TH/MM3 (4.0-11.0)
[2017-12-29 08:00] LABS: BICARBONATE 33.2 MEQ/L (21.0-32.0); CALCIUM 8.8 MG/DL (8.5-10.1); CREATININE 0.8 MG/DL (0.60-1.30)
[2017-12-29 08:17] VITALS: BP 93/51; PULSE 69; RESP 17; TEMP 98.3; O2SAT 94
[2017-12-29] MEDS: CALCIUM/VITAMIN D 250 MG/125 U TAB PO SCH ×3 (09:32→17:34)
[2017-12-29] MEDS: THIAMINE HCL 100 MG TAB PO SCH (09:32)
[2017-12-29] MEDS: CHOLECALCIFEROL (VIT D3) 5000 UNIT CAP PO SCH (09:32)
[2017-12-29] MEDS: DOCUSATE SODIUM 50 MG/SENNA 8.6 MG TAB PO SCH ×2 (09:32→20:57)
[2017-12-29] MEDS: FOLIC ACID 1 MG TAB PO SCH (09:32)
[2017-12-29] MEDS: MULTIVITAMINS/MINERALS THERAPEUTIC TAB PO SCH (09:32)
[2017-12-29] MEDS: SODIUM CHLORIDE 0.9% FLUSH 10 ML FLUSH IV FLUSH SCH ×2 (09:33→20:57)
[2017-12-29] MEDS: TAMSULOSIN HCL 0.4 MG CAP PO SCH (09:35)
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
[2017-12-29] MEDS ORDERED: TAMS5CAP PO (11:17)
[2017-12-29 12:43] VITALS: BP 98/53; PULSE 75; RESP 17; TEMP 98.1; O2SAT 97
[2017-12-29] MEDS: ENOXAPARIN SODIUM 30 MG/0.3 ML SYRINGE SQ SCH (13:24)
[2017-12-29 16:00] VITALS: BP 123/58; PULSE 74; RESP 18; TEMP 98.1; O2SAT 98
[2017-12-29 20:00] VITALS: BP 117/59; PULSE 74; RESP 18; TEMP 98.7; O2SAT 98
[2017-12-29] MEDS: MAGNESIUM HYDROXIDE SUSP 30 ML CUP PO PRN (20:57)
[2017-12-29] MEDS: LACTULOSE SYRUP 20 GM/30 ML CUP PO PRN (20:57)
[2017-12-29] MEDS: SENNOSIDES 8.6 MG TAB PO PRN (20:57)
[2017-12-30] VITALS: BP 105/56; PULSE 77; RESP 17; TEMP 99.6; O2SAT 98
[2017-12-30] MEDS: oxyCODONE/ACETAMINOPHEN 7.5 MG/325 MG TAB PO PRN ×5 (04:50→20:52)
[2017-12-30 08:00] VITALS: BP 104/55; PULSE 67; RESP 17; TEMP 98.8; O2SAT 97
[2017-12-30] MEDS: DOCUSATE SODIUM 50 MG/SENNA 8.6 MG TAB PO SCH ×2 (08:48→20:52)
[2017-12-30] MEDS: TAMSULOSIN HCL 0.4 MG CAP PO SCH (08:48)
[2017-12-30] MEDS: CALCIUM/VITAMIN D 250 MG/125 U TAB PO SCH ×3 (08:48→16:53)
[2017-12-30] MEDS: THIAMINE HCL 100 MG TAB PO SCH (08:48)
[2017-12-30] MEDS: CHOLECALCIFEROL (VIT D3) 5000 UNIT CAP PO SCH (08:48)
[2017-12-30] MEDS: SODIUM CHLORIDE 0.9% FLUSH 10 ML FLUSH IV FLUSH SCH ×2 (08:49→20:52)
[2017-12-30] MEDS: SODIUM CHLOR 0.9% 1000 ML INJ 1,000 ML IV SCH (10:42)
--- NOTE | 2017-12-30 11:10 | HHI.PR ---
Subjective Remarks Patient says he is trying to sleep. No complaints. Pain control Objective Vitals Vital Signs Date Time Temp Pulse Resp B/P (MAP) Pulse Ox O2 Delivery O2 Flow Rate FiO2 12/30/17 08:00 98.8 67 17 104/55 (71) 97 12/30/17 00:00 99.6 77 17 105/56 (72) 98 12/29/17 20:00 98.7 74 18 117/59 (78) 98 12/29/17 16:00 98.1 74 18 123/58 (79) 98 12/29/17 14:06 Nasal Cannula 1.00 12/29/17 12:43 98.1 75 17 98/53 (68) 97 I/O 12/29/17 12/29/17 12/29/17 12/30/17 12/30/17 12/30/17 07:00 15:00 23:00 07:00 15:00 23:00 Intake Total 1380 ml 1660 ml Output Total 3300 ml 2875 ml 1550 ml Balance -1920 ml -1215 ml -1550 ml Intake Oral 720 ml 1660 ml Packed Cells 400 ml Blood Product IV Normal Saline Flush 260 ml Output Urine Total 3300 ml 2875 ml 1550 ml # Bowel Movements 0 0 1 Result Diagram: 12/29/17 0546 12/29/17 0546 Imaging Last Impressions Hip and Pelvis X-Ray 12/25/1730 Signed Impressions: Service Date/Time: Monday, December 25, 2017 00:54 - CONCLUSION: Comminuted left intertrochanteric hip fracture with medial angulation deformity. Gideon Chowdary MD Femur X-Ray 12/25/1730 Signed Impressions: Service Date/Time: Monday, December 25, 2017 00:57 - CONCLUSION: Acute intertrochanteric fracture. Gideon Chowdary MD Chest X-Ray 12/25/1730 Signed Impressions: Service Date/Time: Monday, December 25, 2017 00:58 - CONCLUSION: No acute abnormality demonstrated. Gideon Chowdary MD Objective Remarks GENERAL: Pulling covers over himself. CARDIOVASCULAR: Regular rate and rhythm. RESPIRATORY: No accessory muscle use. Clear to auscultation. Breath sounds equal bilaterally. GASTROINTESTINAL: Abdomen soft, non-tender, nondistended. Hepatic and splenic margins not palpable. MUSCULOSKELETAL: Extremities without edema. dressing over left hip d/c/i NEUROLOGICAL: Awake and alert. Procedures Date of Surgery: Dec 25, 2017 Preoperative Diagnosis: Displaced left hip intertrochanteric fracture Postoperative Diagnosis: Procedure: Left hip reduction and intramedullary fixation Anesthesia: General Surgeon: Jovany Knight Web Designer(s): CONG Gorman PA-C The surgical procedure was assisted by my physician engineer second assistant. My P.A. presence was necessary throughout this case for the manipulation and positioning of the surgical extremity. My P.A. was assisting me throughout the duration of this procedure. The skill set of a physician engineer second assistant was medically necessary to complete this procedure. During the surgical case the surgical training specialist was working at the back table and the physician engineer second assistant was directly assisting me. Operation and Findings: Implants used: [12]mm x [420]mm Synthes troch nail Plan of activity: Weight-bear as tolerated Patient was seen and evaluated preoperatively. The patient has significant hip pain from proximal femur fracture. The risk and benefits of surgery were discussed in depth with the patient to include bleeding, infection, nonunion, malunion, need for hip replacement, painful hardware, as well as medical competitions including blood clots, stroke, heart attack, and . Informed consent was obtained. Operative site was marked. Patient was brought to the operating room and placed on fracture table. IV sedation was administered by anesthesiologist. Timeout procedure was performed. Hip and leg were prepped with alcohol followed by DuraPrep and draped in the usual sterile fashion. IV antibiotics were given prior to incision. Procedure began with reduction of fracture. Traction was applied. The leg was manipulated to achieve reduction. Excellent reduction was achieved. Fluoroscopy was used to confirm reduction. A three inch incision was made proximal to the trochanter. Subcutaneous tissue was dissected bluntly. Guidepin was placed at the tip of the trochanter and advanced into the femoral canal. Fluoroscopy confirmed appropriate guidepin placement. A opening reamer was placed over the guidepin. A long ball tipped guide pin was now placed down the femoral canal into the center of the distal femur. The nail length was now measured. Fluoroscopy confirmed appropriate guidepin placement. Flexible reamers were now passed over the guidepin to ream the intramedullary canal. The nail was attached to the insertion handle. Nail was now placed over the guidepin into the femoral canal. Fluoroscopy confirmed appropriate nail placement. A second incision was made over the lateral thigh. Cannulas were placed through the insertion handle down to the femur. Guidepin was now placed through the femoral nail into the center of the femoral head. Fluoroscopy confirmed appropriate guidepin placement. Screw length was measured. Cannulated drill was placed over the guidepin. Appropriate length lag screw was now placed. Traction was released and compression was applied. The set screw was now tightened in dynamic mode. Next, using perfect [place] technique two distal interlocking screws were placed. Screw holes were predrilled and screw lengths were measured. Final fluoroscopy revealed well aligned fracture with well-placed hardware. Incision was closed with 3-0 Vicryl and abhishek. Sterile dressings were applied. Patient was awakened and transferred to recovery room. Jovany Knight MD Dec 25, 2017 13:49 A/P Problem List: (1) Closed intertrochanteric fracture of left hip ICD Code: S72.142A - Displaced intertrochanteric fracture of left femur, initial encounter for closed fracture Status: Acute Assessment and Plan Pt admitted for Left hip fracture: Pelvic x-ray significant for comminuted left intertrochanteric hip fracture with medial angulation deformity. s/p Left intertrochanteric femur fracture s/p IMN - POD 5 -WBAT -daily dressing changes - scripts for pain meds and xarelto in chart. Alcohol abuse- s/p Thiamine/folate/multivitamins- was on [facility] protocol. Pt has been counseled Cocaine abuse, Chronic-Cessation counseling provided Nasal/throat irritation, Resolved. Encouraged pt to f/u w PCP as an outpatient Anemia, post op, hb had dropped to 6.6 and received 2 units of PRBC. Hb now stable at 10.1 Discharge Planning Discharge orders are in place. CM assisting with discharge planning. Problem Qualifiers (1) Closed intertrochanteric fracture of left hip: Qualified Codes: S72.142A - Displaced intertrochanteric fracture of left femur , initial encounter for closed fracture Estrellita Christina MD Dec 30, 2017 11:09
[2017-12-30 12:23] VITALS: BP 122/70; PULSE 74; RESP 18; TEMP 97.5; O2SAT 97
[2017-12-30] MEDS: ENOXAPARIN SODIUM 30 MG/0.3 ML SYRINGE SQ SCH (12:26)
[2017-12-30 16:27] VITALS: BP 110/57; PULSE 71; RESP 19; TEMP 97.5; O2SAT 100
[2017-12-30 20:05] VITALS: BP 99/60; PULSE 68; RESP 18; TEMP 96.7; O2SAT 98
[2017-12-30 23:00] VITALS: BP 100/57; PULSE 70; RESP 18; TEMP 99; O2SAT 99
[2017-12-31] MEDS: SODIUM CHLOR 0.9% 1000 ML INJ 1,000 ML IV SCH (01:00)
[2017-12-31] MEDS: oxyCODONE/ACETAMINOPHEN 7.5 MG/325 MG TAB PO PRN ×2 (01:58→09:22)
[2017-12-31 07:44] VITALS: BP 91/55; PULSE 67; RESP 17; TEMP 98.1; O2SAT 97
[2017-12-31] MEDS: SODIUM CHLORIDE 0.9% FLUSH 10 ML FLUSH IV FLUSH SCH (09:00)
[2017-12-31] MEDS: CHOLECALCIFEROL (VIT D3) 5000 UNIT CAP PO SCH (09:21)
[2017-12-31] MEDS: CALCIUM/VITAMIN D 250 MG/125 U TAB PO SCH (09:21)
[2017-12-31] MEDS: DOCUSATE SODIUM 50 MG/SENNA 8.6 MG TAB PO SCH (09:21)
[2017-12-31] MEDS: THIAMINE HCL 100 MG TAB PO SCH (09:21)
[2017-12-31] MEDS: TAMSULOSIN HCL 0.4 MG CAP PO SCH (09:21)
--- NOTE | 2017-12-31 10:31 | HHI.PR ---
Subjective Remarks Patient reports he is feeling okay. Pain is controlled. Anticipating discharge to SNF today. Objective Vitals Vital Signs Date Time Temp Pulse Resp B/P (MAP) Pulse Ox O2 Delivery O2 Flow Rate FiO2 12/31/17 07:44 98.1 67 17 91/55 (67) 97 12/30/17 23:00 99.0 70 18 100/57 (71) 99 12/30/17 20:05 96.7 68 18 99/60 (73) 98 12/30/17 16:27 97.5 71 19 110/57 (74) 100 12/30/17 12:23 97.5 74 18 122/70 (87) 97 I/O 12/30/17 12/30/17 12/30/17 12/31/17 12/31/17 12/31/17 07:00 15:00 23:00 07:00 15:00 23:00 Intake Total 1350 ml Output Total 1550 ml 1450 ml 1175 ml Balance -1550 ml -100 ml -1175 ml Intake Oral 1350 ml Output Urine Total 1550 ml 1450 ml 1175 ml # Bowel Movements 1 0 Result Diagram: 12/29/17 0546 12/29/17 0546 Objective Remarks GENERAL: Pulling covers over himself. CARDIOVASCULAR: Regular rate and rhythm. RESPIRATORY: No accessory muscle use. Clear to auscultation. Breath sounds equal bilaterally. GASTROINTESTINAL: Abdomen soft, non-tender, nondistended. Hepatic and splenic margins not palpable. MUSCULOSKELETAL: Extremities without edema. dressing over left hip d/c/i NEUROLOGICAL: Awake and alert. Procedures Left hip reduction and intramedullary fixation A/P Problem List: (1) Closed intertrochanteric fracture of left hip ICD Code: S72.142A - Displaced intertrochanteric fracture of left femur, initial encounter for closed fracture Status: Acute Assessment and Plan Pt admitted for Left hip fracture: Pelvic x-ray significant for comminuted left intertrochanteric hip fracture with medial angulation deformity. s/p Left intertrochanteric femur fracture s/p IMN --WBAT -daily dressing changes - scripts for pain meds and xarelto in chart. Alcohol abuse- s/p Thiamine/folate/multivitamins- Out of withdrawal window. Pt has been counseled Cocaine abuse, Chronic-Cessation counseling provided Nasal/throat irritation, Resolved. Encouraged pt to f/u w PCP as an outpatient Anemia, post op, hb had dropped to 6.6 and received 2 units of PRBC. Hb now stable Discharge Planning DCed to SNF. Resume all previous discharge orders. Problem Qualifiers (1) Closed intertrochanteric fracture of left hip: Qualified Codes: S72.142A - Displaced intertrochanteric fracture of left femur , initial encounter for closed fracture Leonard Singer MD Dec 31, 2017 10:31
== END 2017-12-31 12:28 | DRG 482 ==
LOC: NEPE 00:20 → NEDA 01:51 → N06A 05:25
PROVIDERS: ADMIT Family Medicine; ATTEND Family Medicine
PROC: 0QS706Z Reposition Left Upper Femur with Intramedullary Internal Fixation Device, Open Approach (ICD-10-PCS; principal; 2017-12-25 12:57)
PROC: 30233N1 Transfusion of Nonautologous Red Blood Cells into Peripheral Vein, Percutaneous Approach (ICD-10-PCS; 2017-12-28)
DX: S72.142A Displaced intertrochanteric fracture of left femur, initial encounter for closed fracture (principal); D64.89 Other specified anemias; F14.10 Cocaine abuse, uncomplicated; F10.10 Alcohol abuse, uncomplicated; N40.0 Benign prostatic hyperplasia without lower urinary tract symptoms; K59.03 Drug induced constipation; T40.605A Adverse effect of unspecified narcotics, initial encounter; F17.210 Nicotine dependence, cigarettes, uncomplicated; V18.4XXA Pedal cycle driver injured in noncollision transport accident in traffic accident, initial encounter; Y93.55 Activity, bike riding
CPT/HCPCS: 36430; 71045; 73502; 73552; 76000; 80048; 80053; 81001; 82272; 82306; 83036; 83735; 84100; 84439; 84443; 85014; 85018; 85025; 85610; 85730; 86850; 86900; 86901; 86920; 93005; 96372; 96374; C1713; J0131; J0690; J1100; J1580; J1650; J1940; J2060; J2250; J2270; J2370; J2405; J2710; J3010; J3370; J7050; J7120; P9016